=== PATIENT | male | born 1995 | race Caucasian/White ===

== ENCOUNTER 2023-05-03 19:43 | Emergency (ER) | payer BC, SELFPAY ==
[2023-05-03] VITALS (11 sets, daily range): BP systolic 133–151; BP diastolic 83–103; PULSE 71–88; RESP 14–24; TEMP 36.9; O2SAT 95–97
--- NOTE | ~2023-05-03 | XR_ITS ---
XR chest 2V DATE: 05/03/2023 20:12 INDICATION: Bilateral chest pain, lightheadedness TECHNIQUE: PA and lateral views COMPARISON: None FINDINGS: Heart size is normal. No hilar or mediastinal enlargement. No pulmonary infiltrate or conso lidation, pleural effusion or pulmonary vascular congestion or pneumothorax is detected. IMPRESSION: No active cardiopulmonary disease Reviewed, dictated and finalized at location A.
--- NOTE | 2023-05-03 19:45 | ECG_ITS ---
Measurements Intervals [place] Rate: 75 P: 56 NE: 159 QRS: 33 QRSD: 89 T: 28 QT: 354 QTc: 396 Interpretive Statements SINUS RHYTHM ATRIAL PREMATURE COMPLEX DELAYED PRECORDIAL R/S TRANSITION BASELINE ARTIFACT- I, II, III, AVL BORDERLINE ECG NO PREVIOUS ECG AVAILABLE FOR COMPARISON Electronically Signed On 05-03-2023 21:16:41 CDT by Sushil Jacinto D.O.
--- NOTE | 2023-05-03 20:07 | ED.DIZZY ---
HPI - Dizziness General Chief Complaint: Dizziness Stated Complaint: lightheaded Time Seen by Provider: 05/03/23 19:44 History of Present Illness HPI Narrative: This is a 27-year-old male, who denies significant past medical history, presenting to the emergency department complaining of lightheadedness. The patient states he was sitting into his vehicle, when he became lightheaded. This was associated with intermittent 2/10 throbbing pain in the chest that has occurred in multiple different locations. He states the pain last approximately 30 to 45 seconds and resolves on its own. He denies cough, shortness of breath, loss of consciousness, weakness/numbness. Related Data Home Medications Medication Instructions Recorded Confirmed No Home Medications 05/03/23 05/03/23 Allergies Allergy/AdvReac Type Severity Reaction Status Date / Time No Known Allergies Allergy Verified 05/03/23 19:50 Review of Systems Review of Systems: CONSTITUTIONAL: Denies fever, chills, or sweats. CARDIOVASCULAR: Intermittent chest throbbing denies palpitations, or edema. RESPIRATORY: Denies cough or dyspnea. GASTROINTESTINAL: Denies abdominal pain, nausea, vomiting, or diarrhea. GENITOURINARY: Denies dysuria or hematuria. SKIN: Denies rash or itching. MUSCULOSKELETAL: Denies back pain, joint pain, or myalgia. NEUROLOGIC: Lightheadedness denies headache, numbness, or weakness. PSYCHIATRIC: Denies anxiety or depression. PMFSH Past Medical History Medical History No significant past medical history Surgical History Surgical History (Updated 05/03/23 @ 20:08 by Arjun Denton MD) No significant past surgical history Social History Social History (Updated 05/03/23 @ 20:09 by Arjun Denton MD) Smoking status: Never smoker Alcohol intake: current Substance use: never Lack of Transportation: No Lack of Food: Never True Current Housing: I Have Housing Difficulty Paying Gas/Electric Bills: No Occupation/Education: occupation Exam Narrative: GENERAL: Well-developed, well-nourished, and in no acute distress. HEAD: Normocephalic, atraumatic. EYES: PERRLA and EOMI. ENT: Nares clear, no rhinorrhea or epistaxis. Mucous membranes moist. Oropharynx without tonsillar hypertrophy exudate or other lesions. NECK: Supple. No JVD CHEST: Clear to auscultation. No respiratory distress. No wheezes rales or rhonchi HEART: Regular rate and rhythm. No murmur heard. Normal peripheral pulses. ABDOMEN: Soft, nontender, nondistended, normal active bowel sounds. EXTREMITIES: Normal range of motion. No edema. SKIN: Warm, dry, no rash. NEURO: No focal deficits. Alert and oriented x3. PSYCH: Normal mood and affect. Course Course Emergency Course: 20:52 - EKG not concerning for arrhythmia and demonstrates 1 PVC. Chemistries within normal limits. CBC unremarkable. Troponin negative. Heart score 1. I do not suspect ACS. Chest x-ray unremarkable. The patient states he feels improved after IV fluids. Will discharge with recommendation for primary care follow-up. Discussed return and emergency precautions including signs/symptoms of ACS and respiratory distress. The patient voiced understanding and is comfortable with the plan. All questions answered to his satisfaction. Vital Signs Vital signs: Vital Signs Temperature 98.5 F 05/03/23 19:42 Pulse Rate 88 05/03/23 19:42 Respiratory Rate 17 05/03/23 19:42 Blood Pressure 148/83 H 05/03/23 19:42 Pulse Oximetry 96 05/03/23 19:42 Oxygen Delivery Room Air 05/03/23 19:42 Temperature 98.5 F 05/03/23 20:40 Pulse Rate 76 05/03/23 21:15 Respiratory Rate 14 05/03/23 21:15 Blood Pressure 133/92 H 05/03/23 21:15 Pulse Oximetry 96 05/03/23 21:15 Oxygen Delivery Room Air 05/03/23 19:42 MDM - Dizziness MDM Narrative Medical decision making narrative: Plan: Labs, EKG,
[2023-05-03] MEDS: ACETAMINOPHEN 500 MG TABLET 1000 MG PO (20:12)
[2023-05-03 20:13] LABS: Basophils Percent Auto 0.8 % (0.2-1.2); Eosinophils Absolute Auto 0.1 K/mm3 (0-0.3); Eosinophils Percent Auto 1.6 % (0-4.4); Hematocrit 46.4 % (42.0-52.0); Hemoglobin 15.8 g/dL (14.0-18.0); Immature Granulocyte Absolute 0.01 K/mm3 (0.00-0.031); Immature Granulocyte Percent A 0.2 % (0-0.5); Lymphocytes Absolute Auto 2.26 K/mm3 (0.9-3.2); Lymphocytes Percent Auto 44.2 % (18.3-44.2); Mean Corpuscular HGB Conc 34.1 g/dl (32-36); Mean Corpuscular Hemoglobin 28.3 pg (26-34); Mean Corpuscular Volume 83.2 fl (80-100); Mean Platelet Volume 11.1 fl (7.4-10.4); Monocytes Absolute Auto 0.5 K/mm3 (0.1-0.6); Monocytes Percent Auto 9.6 % (2.6-8.5); Neutrophils Absolute Auto 2.2 K/mm3 (1.3-6.7); Neutrophils Percent Auto 43.6 % (45.5-73.1); Platelet Count Result 170 k/mm3 (150-375); Red Blood Count 5.58 M/mm3 (4.6-6.20); White Blood Count 5.1 K/mm3 (4.5-10.0)
[2023-05-03] MEDS: SODIUM CHLORIDE 0.9% IV 1,000 ML 999 ML IV CONT (20:13)
[2023-05-03 20:40] LABS: Alanine Aminotransferase 51 U/L (6-50); Albumin Level 4.8 g/dL (3.5-5.1); Alkaline Phosphatase 66 U/L (38-126); Anion Gap 11 mmol/L (8-16); Aspartate Amino Transferase 32 U/L (17-59); Bilirubin,Total 0.8 mg/dL (0.2-1.3); Blood Urea Nitrogen 9 mg/dL (9-20); Calcium 9.4 mg/dL (8.4-10.2); Carbon Dioxide 23 mmol/L (22-30); Chloride 105 mmol/L (98-107); Estimated CRCL calculation 103 ml/min; Estimated Glomerular Filt Rate > 60; Glucose 97 mg/dL (65-110); Potassium 4.1 mmol/L (3.4-5.0); Sodium 139 mmol/L (137-145)
[2023-05-03 20:50] LABS: Troponin I < 0.012 ng/mL (0.000-0.034)
== END 2023-05-03 21:35 | disposition home or self-care (01) ==
PROVIDERS: Emergency Provider Preventive Medicine Aerospace Medicine
DX: R42 Dizziness and giddiness (principal); R07.89 Other chest pain; R03.0 Elevated blood-pressure reading, without diagnosis of hypertension; I49.1 Atrial premature depolarization
CPT/HCPCS: 36415; 71046; 80053; 84484; 85025; 93005; 96360; 99284; A9270; J7030

== ENCOUNTER 2024-10-03 01:04 | Emergency (ER) | payer OTHER, BC, SELFPAY ==
[2024-10-03 01:28] VITALS: BP 162/90; PULSE 101; RESP 20; TEMP 37.1; O2SAT 98
[2024-10-03 02:46] LABS: HIV 1/2 Ab P24 Ag Result Negative (Negative)
[2024-10-03 02:54] LABS: Hepatitis B Surface Anti Res Negative; Hepatitis C Virus Antibody Negative (Negative)
--- NOTE | 2024-10-03 02:59 | ED_ITS ---
HPI - General Adult General Chief complaint: Unspecified Stated complaint: need test for blood borne pathogens Time Seen by Provider: 10/03/24 02:57 History of Present Illness HPI narrative: Patient is a 29-year-old male who presents the emergency department this evening for blood test for blood borne pathogens secondary to an incident that occurred at work. 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 Patient did have a cut on his right pinky finger that he sustained 3 or 4 days ago and due to this there was concern that the blood that he was exposed to may have gotten into the cot and been of sort. The cut does appear to be old or any healing with granulation tissue, no open wounds noted. Per protocol patient's was sent to our facility for testing for HIV and hepatitis-B and C. Patient is currently denying any symptoms. Related Data Home Medications ?Medication ?Instructions ?Recorded ?Confirmed ?Last Taken ?Type No Home Medications 05/03/23 05/03/23 Unknown History Allergies Allergy/AdvReac Type Severity Reaction Status Date / Time No Known Allergies Allergy Verified 10/03/24 01:30 Review of Systems Review of Systems: All systems are reviewed and are negative unless stated otherwise in the HPI. [facility] Past Medical History Medical History No significant past medical history Surgical History Surgical History No significant past surgical history Social History Social History Smoking status: Never smoker Alcohol intake: current Substance use: never Lack of Transportation: No Lack of Food: Never True Current Housing: I Have Housing Difficulty Paying Gas/Electric Bills: No Occupation/Education: occupation Exam Narrative: General: Alert, awake, afebrile, in no acute distress. HEENT: PERRL, no rhinorrhea, no post nasal drip, oropharynx clear. Neck: Trachea midline, no JVD, no lymphadenopathy. Cardiovascular: Regular rate and rhythm, no murmurs, rubs or gallops, no periphe ral edema. Respiratory: Clear to auscultation bilaterally, no tachypnea, no wheezing, no rhonchi, no rubs, no respiratory distress. Abdomen: Soft, nontender, nondistended, no rebound, no guarding, no peritoneal signs. Musculoskeletal: No joint swelling or deformity, normal muscle tone. Skin: No rashes or petechia, no signs of infection. Psychiatric: Alert and oriented, normal behavior and judgment for situation. Neurological: Alert and oriented to person, place, and time. Follows all commands. No focal deficits, speech is clear and fluent. Course Vital Signs Vital signs: Vital Signs Temperature 98.7 F 10/03/24 01:28 Pulse Rate 101 H 10/03/24 01:28 Respiratory Rate 20 10/03/24 01:28 Blood Pressure 162/90 H 10/03/24 01:28 Pulse Oximetry 98 10/03/24 01:28 Oxygen Delivery Room Air 10/03/24 01:28 Temperature 98.7 F 10/03/24 01:28 Pulse Rate 101 H 10/03/24 01:28 Respiratory Rate 20 10/03/24 01:28 Blood Pressure 162/90 H 10/03/24 01:28 Pulse Oximetry 98 10/03/24 01:28 Oxygen Delivery Room Air 10/03/24 01:28 Medical Decision Making MDM Narrative Medical decision making narrative: The patient was evaluated by myself in the emergency department. History is obtained from patient who is an independent historian and physical exam was performed. External medical records were reviewed at this time. HIV hepatitis-B and C blood test were all negative. Comorbidities impacting this visit include none. I have evaluated and discussed social determinants of health with the patient that could potentially impact subsequent diagnosis and treatment plans. On repeat assessment of the patient, reevaluation revealed that the patient is doing well and is in no acute distress. Patient symptoms have remained stable since he arrived to our emergency department. Repeat vital signs were all reviewed and noted to be stable. Differential diagnosis and treatment plan were discussed with the patient at bedside. Patient agrees with discussion and after shared medical decision making agrees with discharge. All questions were answered to the patient's satisfaction. Patient will follow up with PCP in 3-5 days. Patient was provided with strict return precautions and instructed to return to the emergency department if any new or worsening symptoms develop. The patient was discharged in stable condition. Vital Signs Vital Signs: Vital Signs Temperature 98.7 F 10/03/24 01:28 Pulse Rate 101 H 10/03/24 01:28 Respiratory Rate 20 10/03/24 01:28 Blood Pressure 162/90 H 10/03/24 01:28 Pulse Oximetry 98 10/03/24 01:28 Oxygen Delivery Room Air 10/03/24 01:28 Temperature 98.7 F 10/03/24 01:28 Pulse Rate 101 H 10/03/24 01:28 Respiratory Rate 20 10/03/24 01:28 Blood Pressure 162/90 H 10/03/24 01:28 Pulse Oximetry 98 10/03/24 01:28 Oxygen Delivery Room Air 10/03/24 01:28 Lab Data Labs: Lab Results 10/03/24 Range/Units 01:30 Hep Bs Antibody Negative Hepatitis C Ab Screen Negative (Negative) HIV 1&2 Ab/P24 Ag 4thGn Negative (Negative) Discharge Plan Discharge Clinical Impression: Exposure to blood-borne pathogen Patient Disposition: Home, Self-Care Condition: Stable Instructions: Antibiotic Form Additional Instructions: Please follow-up with your family doctor within the next 3-5 days. Return to the ED if any new or worsening symptoms develop. Patient Language: Kyrgyz Prescriptions: No Action No Home Medications Follow-up/Referrals: PHYSICIAN,DIGITAL CONTENT MANAGER [Primary Care Provider] - Dalton Macias MD [Physician] - 1 Week Time of Disposition: 03:05
[2024-10-03 03:22] VITALS: RESP 18; O2SAT 98
--- OUTSIDE RECORDS SUMMARY | 2024-10-10 04:27 | XMS_ITS | Patient Health Summary ---
Author Organization [facility] Address [address] [place] [address] Care Team Providers Care Grey Iron Molder Name Role Phone Unavailable Primary Care Provider Unavailabl e Note from [facility],non-owned Affiliates and Associated Physician Practices is amultiple site organization consisting of ambulatory clinics and hospital sitesin [place], [place], [place] and [place]. This disclosure is being madepursuant to the Care Everywhere program and may not contain all information available regarding this patient. Last updated 18.[facility] Social History Tobacco Use Types Packs/Day Years Used Date Smoking Tobacco: Never Assessed Sex and Gender Information Value Date Recorded Sex Assigned at Not on file Gender Identity Not on file Sexual Orientation Not on file
--- OUTSIDE RECORDS SUMMARY | 2024-10-10 04:27 | XMS_ITS | Data Portability ---
Author Organization [place] [facility] [email or web address], Main Office Address [address] [place] [address] Assessment No assessment recorded. Plan of Treatment Reminders Order Date Submit Date Provider Last Modified By Organization Details Last Modified Time Details Appointments None recorded. Lab None recorded. Referral None recorded. Procedures None recorded. Surgeries None recorded. Imaging None recorded. Medication Orders propranolol 10 mg tablet 2022 023 [facility] #[id number], [address], [place], [id number], 3 08:56:55 sertraline 25 mg tablet 2022 023 [facility] #[id number], [address], [place], [id number], 3 08:56:54 propranolol 10 mg tablet 2022 023 [facility][id number], [address], [place], [id number], 3 08:49:50 sertraline 25 mg tablet 2022 023 [facility] #[id number], [address], [place], [id number], 3 08:49:50 propranolol 10 mg tablet 2023 024 [facility][id number], [address], [place], [id number], 4 12:21:30 sertraline 25 mg tablet 2023 024 [facility] #[id number], [address], [place], [place], [id number], 4 12:21:31 Patient TargetsNo targets recorded. Patient InstructionsNo instructions recorded. Reason for Referral None Reported. Problems Name Problem SNOMED Code Status Onset Date Resolution Date Notes Provider Name and Address Organization Details Recorded Time Hypertensive disorder 58817571 Active 2022 Vani Nicholson CMA null, [place] [employer] 3 08:23:19 Panic attack 778957017 Active 2022 EFRA[facility]N Willoughby [address], [place], [address], [employer] 3 08:36:09 Anxiety 57333469 Active 2022 EFRAÍN Willoughby [address], [place], [address], [facility] 3 08:37:37 Problem Notes None recorded. Medical Equipment None Reported. Allergies No known drug allergies Medications Name Sig Start Date Stop Date Status Note LastModified by Organization Details LastModified Time prednisone 20 mg tablet TAKE 2 TABLETS BY MOUTH EVERY DAY FOR 5 DAYS active Not Available Not Available No t Available propranolol 10 mg tablet TAKE 2 TABLETS BY MOUTH THREE TIMES DAILY NEEDED active Not Available Not Available No t Available amoxicillin 875 mg tablet TAKE 1 TABLET BY MOUTH TWICE DAILY FOR 10 DAYS active Not Available Not Available No t Available benzonatate 100 mg capsule TAKE 1 CAPSULE BY MOUTH THREE TIMES DAILY FOR 10 DAYS active Not Available Not Available No t Available sertraline 25 mg tablet TAKE 1 TABLET BY MOUTH EVERY DAY 024 active Not Available Not Available Not Avai lable fluticasone propionate 50 mcg/actuation nasal spray,suspens ion INSTILL 2 SPRAYS NASALLY ONCE PER DAY active Not Available Not Available No t Available Vitals Date Recorded Body weight Body temperature Oxygen saturation Oxygen saturation in Arterial blood by Pulse oximetry Heart rate Systolic blood pressure Diastolic blood pressure Provider Name and Address Organization Details Last Updated DateTime 3 28783.9 2 g 97.5 [degF] 99 % 99 % 70 /min 138 mm[Hg] 72 mm[Hg] Vani Nicholson CMA [facility] 3 08:22:29 Date Recorded Body weight Body mass index (BMI) Body height Body temperature Heart rate Oxygen saturation Oxygen saturation in Arterial blood by Pulse oximetry Systolic blood pressure Diastolic blood pressure Provider Name and Address Organization Details Last Updated DateTime 3 40952.2 9 g 30.1 kg/m2 172.72 cm 97.9 [degF] 64 /min 99 % 99 % 116 mm[Hg] 78 mm[Hg] Dayanara Jacques RN [email or web address] 3 08:31:32 Date Recorded Body height Body mass index (BMI) Body weight Body temperature Heart rate Oxygen saturation Oxygen saturation in Arterial blood by Pulse oximetry Systolic blood pressure Diastolic blood pressure Provider Name and Address Organization Details Last Updated DateTime 4 172.72 cm 30.4 kg/m2 20851.4 7 g 97.6 [degF] 105 /min 98 % 98 % 134 mm[Hg] 88 mm[Hg] Cristela Oneill RN [facility] 4 11:13:59 Social History Question Answer Notes LastModified by Organizat ion Details LastModified Time Tobacco Smoking Status Never Smoker Vani Nicholson CMA null, [facility] 06/03/2023 08:23:39 What Is Your Level Of Alcohol Consumption? None Information not available 06/03/2023 What Is Your Level Of Caffeine Consumption? Moderate [email or web address] Information not available 06/03/2023 Do You Use Any Illicit Or Recreational Drugs? No [email or web address] Information not available 06/03/2023 Has Tobacco Cessation Counseling Been Provided? No Information not available 06/03/2023 Do You Or Have You Ever Used Any Other Forms Of Tobacco Or Nicotine? No [email or web address] Information not available 06/03/2023 Sex: Unknown Functional Status None recorded. Mental Status None recorded. Family History Nothing Reported. Medical History No medical history recorded. Past Encounters Encounter ID Performer Location Encounter Start Date Encounter Closed Date Diagnosis/Indication Diagnosis SNOMED-CT Code Diagnosis ICD10 Code [id number] Nathan Watt DIRECTOR DATA MANAGEMENT-C [facility] [address] [address] [place] [address] 06/03/2023 08:14:15 06/03/2023 08:45:02 Panic attack 607617680 F41.0 Anxiety 09757687 F41.9 [id number] Nathan Watt DIRECTOR DATA MANAGEMENT-C [facility] [address] [facility] [address] [place] [address] 07/08/2023 08:26:19 07/08/2023 08:41:48 Panic attack 822139063 F41.0 Anxiety 21790220 F41.9 [id number] GRISEL WilloughbyP-C [facility] [address] [facility] [address] [place] [address] 11/13/2023 11:07:18 11/13/2023 12:24:11 Panic attack 391241023 F41.0 Anxiety 77449152 F41.9 Health Concerns Section Related Observation LastModified by Organization Detai ls LastModified Time None Recorded Concern Status LastModified by Organization Details LastModified Time None Recorded Advance Directives Directive None Recorded Payers Encounter Date Sequence Insurance Name Policy Number Policy Winters Covered Member ID Winters Member ID Guarantor Name 06/03/2023 1 [place] [id number] Rakeshlarry Sanchez [id number] Rakeshlarry Sanchez 07/08/2023 1 [place] [id number] Rakesh Sanchez [id number] Rakesh Sanchez 11/13/2023 1 [place] [id number] Rakesh Sanchez [id number] Rakeshlarry Sanchez Notes Date Note Type Note Provider Name and Address Organization Details Recorded Time 06/03/2023 text/html Pt is here to establish care with a pcp. Was taken to the hospital per EMS recently for cardiac symptoms. Reports blood pressure over 200 systolic with EMS. Discharged from ER without scripts Believes he suffers from anxiety/panic attacks. Worsened in the last 2 years. Sx include chest pressure, racing thoughts. Can last as long as an hour EFRA[facility]N Willoughby [address], [place], [address], [facility] [employer] [facility] 06/03/2023 08:57:24 07/08/2023 text/html Pt is here to f/ u on anxiety/panic attacks EFRAÍN Willoughby [address], [place], [address], [facility] [employer] [facility] [employer] [facility] 07/08/2023 08:50:11 11/13/2023 text/html Pt is here for 3 month f/u EFRAÍN Willoughby [address], [place], [address], [facility] [employer] [facility] [employer] [facility] 11/13/2023 12:22:24
--- OUTSIDE RECORDS SUMMARY | 2024-10-10 04:27 | XMS_ITS | Continuity of Care Document ---
Author Organization [facility] Address [address] [place] [address] Phone Care Team Providers Care Inclinometer Tester Name Role Phone Robert Hamm MD Unavailable Unavailabl e Allergies, Adverse Reactions, Alerts Substance Reaction Status Criticality No Known allergies Medications Medication Instructions Dosage Effective Dates (start - stop) Status Comments [place] 5 mg-325 mg tablet take 2 tablet by oral route every 4 - 6 hours as needed for pain - Active Percocet 5 mg-325 mg tablet take 1 - 2 tablet by oral route every 4 - 6 hours as needed 1.00-2.00 tablet - Active Procedures Procedure Date OFFICE/OUTPATIENT VISIT EST POSTOP FOLLOW-UP VISIT POSTOP FOLLOW-UP VISIT POSTOP FOLLOW-UP VISIT MU Reporting OFFICE/OUTPATIENT VISIT NEW Advance Directives Directive Yes / No Effective Date File Name Resuscitation Not Answered N/A N/A Life Support Not Answered N/A N/A Intubation Not Answered N/A N/A Antibiotics Not Answered N/A N/A IV Fluid Support Not Answered N/A N/A Tube Feed Not Answered N/A N/A Other Directive N/A N/A WARNING:The information contained in this section is historical and is provided for information only and does not constitute a legal document or any assurance that the information is still accurate. Please verify the information with the brody of the legal document before using it for clinical purposes. Encounters Encounter Description Practice Location Reason(s) For Visit Diagnoses Date Provider Providers Copied on Encounter OFFICE/OUTPA TIENT VISIT EST [facility], [address] [address], [place], [address], [place] tel:[phone] [facility] Status post arthroscopy of shoulderGlenoid labrum tearPain in joint involving shoulder region [address] , [place], [place], [id number] . tel:[phone] Referring Provider: Junior Davalos, [address] [facility], [place], [address]. tel:[phone] [facility], [address] [address], [place], [address], [place] tel:[phone] [facility] RT SHOULDER (chief complaint) Glenoid labrum tearStatus post arthroscopy of shoulder [address] [facility], [place], [place], [address] . tel:[phone] Referring Provider: Junior Davalos, [address] [place] [address], [place], [address]. tel:[phone] [facility], [address] [facility] [address] [address], [place], [address], [place] tel:[phone] [facility] RT SHOULDER (chief complaint) Status post arthroscopy of shoulderStatus post arthroscopy of shoulderGlenoid labrum tear 3[address] [facility] [address] , [place], [place], [address] . tel:[phone] Referring Provider: Junior Davalos, [address] [facility], [place], [address]. tel:[phone] [facility], [address] [address], [place], [address], [place] tel:[phone] [facility] No Information 0[address] [place], [place], [address] . tel:[phone] [facility], [address] [facility] [address], [place], [address], [place] tel:[phone] [facility] RT SHOULDER (chief complaint) Status post arthroscopy of shoulderGlenoid labrum tear [address], [place], [address]. tel:[phone] Referring Provider: Junior Davalos, [address] [place] [address], [place], [address]. tel:[phone] [facility], [address] [facility] [address], [place], [address], [place] tel:[phone] [facility] No Information [address] [facility] [address] , [place], [place], [address] . tel:[phone] OFFICE/OUTPA TIENT VISIT NEW [facility], [address] [facility] [address], [place], [address], [place] tel:[phone] [facility] Rt shoulder pain (chief complaint) Pain in joint involving shoulder regionGlenoid labrum tear [address] [address] [facility], [place], [place], [address] . tel:[phone] Referring Provider: Junior Davalos, [address] [place] [address], [place], [address]. tel:[phone] Family History Family Member Type Diagnosis Age At Onset Father Problem (finding) DVT Payers Payer name Insurance type Covered constitution party ID Authoriza tion(s) No Information Social History Type Description Quantity Date Captured Comments Alcohol Use Details Unknown Caffeine Use Details Unknown Tobacco Use Status No Information Smoking Status Never smoker Sex Male Chief Complaint And Reason For Visit No Information Reason For Referral Reason For Referral No Information History Of Present Illness Encounter Date Complaint History Of Prese nt Illness No Information Functional Status Date Functional Assessmen t No Information Instructions Date Instruction Additional Infor mation Physical activity counseling Rel ated to Dietary Surveillance Counseling Activity as tolerated Activity as tolerated Physical activity counseling Rel ated to Dietary Surveillance Counseling Physical activity counseling Rel ated to Dietary Surveillance Counseling Activity as tolerated Physical activity counseling Rel ated to Dietary Surveillance Counseling Activity as tolerated Physical activity counseling Rel ated to Dietary Surveillance counseling Assessments Type Assessment Date No Information Patient Care Teams Name Effective Dates (start - stop) Status Members No Information
--- OUTSIDE RECORDS SUMMARY | 2024-10-10 04:27 | XMS_ITS | Encounter Summary ---
Author Organization [facility] Address [address] [place] [address]. [place], [place] [address] [place] [address] Care Team Providers Care Peanut Farmer Name Role Phone None, Provider MD Primary Care Provider Unavaila ble Reason for Referral * Imaging (Emergency) - Closed Specialty Diagnoses / Procedures Referred By Cristina anand Referred To Contact RADIOLOGY Procedures CT HEAD WO CON Petra Garcia PA-C [address] [address] Phone: tel: fax: Referral ID Status Reason Start Date Expiration Date Visits Re quested Visits Authorized [id number] Closed 06/10/2021 07/11/2022 1 1 Reason for Visit * Reason Comments Head Injury Encounter Details Date Type Department Care Team (Late st Contact Info) Description 06/10/2021 1:46 PM CDT - 06/10/2021 2:10 PM CDT Emergency [facility] [place] [address] Asif Ruelas PA [address] [place], [place] [address] Head Injury Discharge Disposition: Home or Self Care (Routine Discharge) Social History Tobacco Use Types Packs/Day Years Used Date Smoking Tobacco: Never Alcohol Use Standard Drinks/Week Comments Yes 0 (1 standard drink = 0.6 oz pur e alcohol) socially Sex and Gender Information Value Date Recorded Sex Assigned at Not on file Legal Sex Male 8:05 PM CDT Gender Identity Not on file Sexual Orientation Not on file documented as of this encounter Last Filed Vital Signs Vital Sign Reading Time Taken Comments Blood Pressure 160/100 06/10/2021 10:28 AM CDT Pulse 89 06/10/2021 10:28 AM CDT Temperature 36.7 ??C (98.1 ??F) 06/10/2021 1 0:28 AM CDT Respiratory Rate 16 06/10/2021 10:2 8 AM CDT Oxygen Saturation 99% 06/10/2021 10: 28 AM CDT Inhaled Oxygen Concentration - - Weight 71.6 kg (157 lb 13.6 oz) 021 10:28 AM CDT Height 172.7 cm (5' 8 ) 06/10/2021 10:2 8 AM CDT Body Mass Index 24 06/10/2021 10:28 AM CDT documented in this encounter Discharge Instructions * Attachments The following attachments cannot be sent through Care Everywhere. * Dizziness, Nonvertigo, Discharge Instructions (Greek) * Concussion, Adult ED (Greek) documented in this encounter ED Notes * Jazmin Bridges RN - 06/10/2021 2:14 PM CDT Provider discussed today's findings with the patient/family. The patient has been given informationregarding their treatment, follow up and concerning symptoms for which they should seek urgent or emergent attention. I have expressed the the importance of seeking attention should there be any new,or worsening symptoms or persistence of their condition. Patient verbalized understanding of the discharge instructions. * SHERRI Sandoval - 06/10/2021 1:54 PM CDT [place], [place] EMERGENCY DEPARTMENT ENCOUNTER HISTORICAL INFORMATION Primary Care Doctor: Provider MD Elilott Patient information was obtained primarily from the patient, nursing notes History/Exam limitations: None Provider at Bedside Date/Time Event User Comments 06/10/21 9298 Provider at Bedside Assessing Patient PETRA GARCIA CHIEF COMPLAINT Head Injury HPI Rakesh Sanchez is a 25-year-old male who presents dizziness after striking head on Thursday (whileintoxicated - same level fall). Pt states he has been feeling dizzy since. No real headache. Pt denies neck pain. Pt denies visual disturbances, no n/v. PAST MEDICAL HISTORY History reviewed. No pertinent past medical history. Negative unless otherwise noted SURGICAL HISTORY Past Surgical History: Procedure Laterality Date ??? SHOULDER SURGERY Negative unless otherwise noted CURRENT MEDICATIONS No current facility-administered medications for this encounter. No current outpatient medications on file. ALLERGIES No Known Allergies FAMILY HISTORY No family history on file. Negative unless otherwise noted SOCIAL HISTORY Social History Socioeconomic History ??? Marital status: Single Spouse name: Not on file ??? Number of children: Not on file ??? Years of education: Not on file ??? Highest education level: Not on file Occupational History ??? Not on file Tobacco Use ??? Smoking status: Never Smoker Substance and Sexual Activity ??? Alcohol use: Yes Comment: socially ??? Drug use: Never ??? Sexual activity: Not on file Other Topics Concern ??? Not on file Social History Narrative ??? Not on file Social Determinants of Health Financial Resource Strain: ??? Difficulty of Paying Living Expenses: Food Insecurity: ??? Worried About Running Out of Food in the Last Year: ??? Ran Out of Food in the Last Year: Transportation Needs: ??? Lack of Transportation (Medical): ??? Lack of Transportation (Non-Medical): Physical Activity: ??? Days of Exercise per Week: ??? Minutes of Exercise per Session: Stress: ??? Feeling of Stress : Social Connections: ??? Frequency of Communication with Friends and Family: ??? Frequency of Social Gatherings with Friends and Family: ??? Attends Orthodox Services: ??? Active Member of Clubs or Organizations: ??? Attends Club or Organization Meetings: ??? Marital Status: Intimate Partner Violence: ??? Fear of Current or Ex-Partner: ??? Emotionally Abused: ??? Physically Abused: ??? Sexually Abused: Negative unless otherwise noted REVIEW OF SYSTEMS Review of Systems Neurological: Positive for dizziness. All other systems reviewed and negative PHYSICAL EXAM VITAL SIGNS: Filed Vitals: 06/10/21 1028 BP: (!) 160/100 Pulse: 89 Resp: 16 Temp: 98.1 ??F (36.7 ??C) SpO2: 99% Weight: 71.6 kg (157 lb 13.6 oz) Height: 5' 8 (1.727 m) Constitutional: Well developed, Well nourished, No acute distress, Non-toxic appearance. HENT: Normocephalic, Atraumatic, Bilateral external ears normal, Oropharynx moist, Eyes: PERRL, EOMI, Conjunctiva normal, No discharge. Neck- Normal range of motion, No tenderness, Supple, No stridor. Respiratory: Normal breath sounds, No respiratory distress. Cardiovascular: Normal heart rate, Normal rhythm, no chest wall tenderness GI: nd Musculoskeletal: Intact distal pulses, No edema, No tenderness, No cyanosis, No clubbing. Good range of motion in all major joints. No tenderness to palpation or major deformities noted. Back- No tenderness. Integument: Warm, Dry, No erythema, No rash. Lymphatic: No lymphadenopathy noted. Neurologic: Alert & oriented x 3, Psychiatric: Affect normal, Judgment normal, Mood normal. Pertinent Labs: No results found for this visit on 06/10/21. RADIOLOGY CT HEAD WO CON Final Result by User, [id number] (06/10 1216) Procedure(s): CT HEAD WO CON Date of service: 06/10/2021 12:04 PM Provided clinical information: 25 years, Male, Head trauma, mod-severe Procedure and materials: Helical images of the head are obtained from the base of skull through to the vertex. A dose lowering technique was used for this procedure, which may include, but is not limited to, dose reduction technique, automated exposure control, iterative reconstruction, ALARA (As Low As Reasonably Achievable), or Image Gently techniques. Comparison studies: None. Observations: No intracranial hemorrhage, midline shift or mass effect is present. Ventricles and sulci are concordant with patient's age. Calvarium is intact. Paranasal sinuses are clear. IMPRESSION: No acute intracranial abnormality. Referred By: Interpreted By: Abiel Herrera MD, 06/10/2021 12:11 PM P MEDS GIVEN IN ER: Medications - No data to display ED COURSE & MEDICAL DECISION MAKING Pertinent Labs & Imaging studies reviewed. (See chart for details) Discussed concussion and rest and return precautions. ? Disposition Discussion: I have discussed today's findings with the patient and provided information regarding the likely diagnosis. The patient has been given information regarding their treatment, follow up and concerning symptoms for which they should seek urgent or emergent attention. I have expressed the the importance of seeking attention should there be any new, or worsening symptoms or persistence of their condition. The patient is stable at discharge and has verbalized understanding of these instructions. DATE: 06/10/2021 1:54 PM PATIENT: Rakesh Sanchez Discharge Clinical Impressions: dizziness concussion Discharge Condition: stable Discharge Disposition: Patient discharge to home with I spent time answering the patient's questions. Discharge instructions using teach back, understanding assessed and validated. Please refer to the exit leader writer discharge instructions for details surrounding the discharge plan. I did reiterate with the patient that if an urgent need for immediate follow up comes up, not to hesitate to return to the ED. SHERRI Sandoval PA 06/10/21 1356 Cosigned by Mendez Sandoval MD at 06/10/2021 2:52 PM CDT * Petra Garcia PA-C - 06/10/2021 12:29 PM CDTSummary: head injury [place], [place] EMERGENCY DEPARTMENT ENCOUNTER Medical Screening Examination 06/10/21 12:29 PM Chief Complaint : Head Injury HPI : Rakesh Sanchez is a 25-year-old male who presents c/o ongoing AVERY and dizziness x3 days afterminor head injury. Vital Signs: Filed Vitals: 06/10/21 1028 BP: (!) 160/100 Pulse: 89 Resp: 16 Temp: 98.1 ??F (36.7 ??C) SpO2: 99% Weight: 71.6 kg (157 lb 13.6 oz) Height: 5' 8 (1.727 m) Physical exam: A brief physical exam was completed to facilitate/expedite patient care. Chen findings include: stable Plan: imaging. Evaluation PETRA GARCIA PA-C 06/10/2021 Petra Garcia PA-C 06/10/21 1230 Cosigned by Mendez Snadoval MD at 06/10/2021 1:09 PM CDT * Hair Li RN - 06/10/2021 10:29 AM CDT Ambulatory to ED complaining of hitting his head day night and getting dizzy with standing since. Pt states at work felt like he was going to pass out and was told to come here. No symptoms currently. Denies vision changes, nvd, headache documented in this encounter Plan of Treatment Not on file documented as of this encounter Procedures Procedure Name Priority Date/Time Associated Diagnosis Comments CT HEAD WO CON STAT 06/10/2021 12:04 PM CDT documented in this encounter Results * CT HEAD WO CON (06/10/2021 12:04 PM CDT) Anatomical Region Laterality Modality Head Computed Tomogra phy 06/10/2021 12:1 1 PM CDT Impressions 06/10/2021 12:15 PM CDT IMPRESSION: No acute intracranial abnormality. Referred By: ?? Interpreted By: Abiel Herrera MD, 06/10/2021 12:11 PM Narrative 06/10/2021 12:15 PM CDT Procedure(s): CT HEAD WO CON Date of service: 06/10/2021 12:04 PM Provided clinical information: 25 years, Male, Head trauma, mod-severe Procedure and materials: Helical images of the head are obtained from the base of skull through to the vertex. A dose lowering technique was used for this procedure, which may include, but is not limited to, dose reduction technique, automated exposure control, iterative reconstruction, ALARA (As Low As Reasonably Achievable), or Image Gently techniques. Comparison studies: None. Observations: ?? No intracranial hemorrhage, midline shift or mass effect is present. ??Ventricles and sulci are concordant with patient's age. ??Calvarium is intact. ??Paranasal sinuses are clear. Procedure Note Abiel Herrera MD - 06/10/2021 Procedure(s): CT HEAD WO CON Date of service: 06/10/2021 12:04 PM Provided clinical information: 25 years, Male, Head trauma, mod-severe Procedure and materials: Helical images of the head are obtained from thebase of skull through to the vertex. A dose lowering technique was used for this procedure, which may include,but is not limited to, dose reduction technique, automated exposurecontrol, iterative reconstruction, ALARA (As Low As ReasonablyAchievable), or Image Gently techniques. Comparison studies: None. Observations: No intracranial hemorrhage, midline shift or mass effect is present.Ventricles and sulci are concordant with patient's age. Calvarium isintact. Paranasal sinuses are clear. IMPRESSION: No acute intracranial abnormality. Referred By: Interpreted By: Abiel Herrera MD, 06/10/2021 12:11 PM us Petra Garcia PA-C CT Final Resul t documented in this encounter Visit Diagnoses Diagnosis Concussion- Primary Concussion, unspecified Dizziness Dizziness and giddiness documented in this encounter Care Teams Peanut Farmer Relationship Specialty Start Date End Date None, Provider, PCP - General 06/10/21 documented as of this encounter
--- OUTSIDE RECORDS SUMMARY | 2024-10-10 04:27 | XMS_ITS | Encounter Summary ---
Author Organization [facility] Address [address] [facility] [place] [address] Care Team Providers Care Security System Administrator Name Role Phone Unavailable Primary Care Provider Unavailabl e Encounter Details Date Type Department Care Team (Latest Contact Info) Description 08/27/2016 11:29 AM SUPERVISOR FABRICATION DEPARTMENT - 08/27/2016 11:59 PM SUPERVISOR FABRICATION DEPARTMENT Hospital Encounter [facility] MATERNAL/ EVALUATION UNIT [address] [place] [address]. [address] [place] [address] Edward Kimble MD [address] [place] [id number] Discharge Disposition: Home or Self Care Social History Tobacco Use Types Packs/Day Years Used Date Smoking Tobacco: Never Assessed Sex and Gender Information Value Date Recorded Sex Assigned at Not on file Gender Identity Not on file Sexual Orientation Not on file documented as of this encounter Progress Notes * Marcelo Carroll RN - 08/27/2016 2:40 PM CST Order per Jonny Alcantar for genetic lab draw. Appointment created for blood draw. Jonny robertson. Labs sent. 08-27-16 RVISOR FABRICATION DEPARTMENT documented in this encounter Plan of Treatment Not on file documented as of this encounter Visit Diagnoses Not on filedocumented in this encounter
--- OUTSIDE RECORDS SUMMARY | 2024-10-10 04:27 | XMS_ITS | Encounter Summary ---
Author Organization [facility] Address [address] [place] [address]. [place], [place] [address] [place] [address] Care Team Providers Care Machine Binding Folder Name Role Phone Unavailable Primary Care Provider Unavailabl e Encounter Details Date Type Department Care Team (Late st Contact Info) Description 07/09/2008 Emergency [facility] Emergency [place], [place] [address] Omaira Gill MD [address] [facility] [address] [place] [address] Social History Tobacco Use Types Packs/Day Years Used Date Smoking Tobacco: Never Assessed Sex and Gender Information Value Date Recorded Sex Assigned at Not on file Legal Sex Male 8:05 PM CDT Gender Identity Not on file Sexual Orientation Not on file documented as of this encounter Plan of Treatment Not on file documented as of this encounter Visit Diagnoses Not on filedocumented in this encounter
--- OUTSIDE RECORDS SUMMARY | 2024-10-10 04:27 | XMS_ITS | Referral Summary ---
Author Organization [facility] Address [address] [place] [address] Care Team Providers Care Housekeeper Supervisor Name Role Phone Unavailable Primary Care Provider Unavailabl e Source Comments [facility],non-owned Affiliates and Associated Physician Practices is amultiple site organization consisting of ambulatory clinics and hospital sitesin [place], [place], [place] and [place]. This disclosure is being madepursuant to the Care Everywhere program and may not contain all information available regarding this patient. Last updated 18.[facility] [employer] Social History Tobacco Use Types Packs/Day Years Used Date Smoking Tobacco: Never Assessed Sex and Gender Information Value Date Recorded Sex Assigned at Not on file Gender Identity Not on file Sexual Orientation Not on file Plan of Treatment Not on file
--- OUTSIDE RECORDS SUMMARY | 2024-10-10 04:27 | XMS_ITS | Encounter Summary ---
Author Organization [facility] Address [address] [place] [address]. [place], [place] [id number] [place] [address] Care Team Providers Care Audit Senior Associate Name Role Phone Unavailable Primary Care Provider Unavailabl e Encounter Details Date Type Department Care Team (Latest Contact Info) Description 11/29/2012 Abstract [facility] Medical Group Social History Tobacco Use Types Packs/Day Years [...]
--- OUTSIDE RECORDS SUMMARY | 2024-10-10 04:27 | XMS_ITS | Clinical Summary ---
Author Organization [facility] Address [address] [place] [address]. [place], [place] [id number] [place] [address] Care Team Providers Care Vessel Captain Name Role Phone None, Provider Primary Care Provider Unavaila ble Allergies No known active allergies Social History Tobacco Use Types Packs/Day Years Used Date Smoking Tobacco: Never Alcohol Use Standard Drinks/Week Comments Yes 0 (1 standard drink = 0.6 oz pur e alcohol) socially Sex and Gender Information Value Date Recorded Sex Assigned at Not on file Legal Sex Male 8:05 PM CDT Gender Identity Not on file Sexual Orientation Not on file Last Filed Vital Signs Vital Sign Reading Time Taken Comments Blood Pressure 145/94 06/10/2021 2:12 PM CDT Pulse 76 06/10/2021 2:12 PM CDT Temperature 36.7 ??C (98.1 ??F) 06/10/2021 1 0:28 AM CDT Respiratory Rate 18 06/10/2021 2:12 PM CDT Oxygen Saturation 99% 06/10/2021 2:12 PM CDT Inhaled Oxygen Concentration - - Weight 71.6 kg (157 lb 13.6 oz) 021 10:28 AM CDT Height 172.7 cm (5' 8 ) 06/10/2021 10:2 8 AM CDT Body Mass Index 24 06/10/2021 10:28 AM CDT Plan of Treatment Health Maintenance Due Date Last Done Comments Annual Physical 1996 Hepatitis C 2011 DTaP, Tdap and Td Vaccines (2 - Tdap) 2012 05/07/2000, 03/26/2000, 07/24/1999, Additional history exists Hepatitis B Vaccines (1 of 3 - 19+ 3-dose series) 2012 COVID-19 Vaccine (2023-25 season) 2024 Influenza Adult (#1) 2024 HPV Vaccines Aged Out No longer eligi ble based on patient's age to complete this topic Meningococcal Vaccine Aged Out No pedro luis michael eligible based on patient's age to complete this topic Pneumococcal Vaccine: Pediatrics (0 to 5 Years) and At-Risk Patients (6 to 64 Years) Aged Out No longer eligible based on patient's age to complete this topic RSV Immunizations Under 20 Months Aged Out No longer eligible based on patient's age to complete this topic Insurance Care Teams Vessel Captain Relationship Specialty Start Date End Date None, ProviderMD PCP - General 06/10/21
--- OUTSIDE RECORDS SUMMARY | 2024-10-10 04:27 | XMS_ITS | Encounter Summary ---
Author Organization [facility] Address [address] [place] [address]. [place], [place] [address] [place] [address] Care Team Providers Care Rn Angiography Name Role Phone Unavailable Primary Care Provider Unavailabl e Encounter Details Date Type Department Care Team (Late st Contact Info) Description 09/04/2008 Emergency [facility] Emergency Room ONE [place], [place] [address] Omaira Gill MD [address] [facility] [address] [place] [address] Social History Tobacco Use Types Packs/Day Years [...]
--- OUTSIDE RECORDS SUMMARY | 2024-10-10 04:27 | XMS_ITS | Encounter Summary ---
Author Organization [facility] Address [address] [place] [address]. [place], [place] [address] [place] [address] Care Team Providers Care Commercial Cleaner Name Role Phone Unavailable Primary Care Provider Unavailabl e Encounter Details Date Type Department Care Team (Late st Contact Info) Description 04/12/2002 Abstract [facility] [place] [address] , Mark Lambert MD Social History Tobacco Use Types Packs/Day Years [...]
--- OUTSIDE RECORDS SUMMARY | 2024-10-10 04:27 | XMS_ITS | Clinical Summary ---
Author Organization [facility] Address [address] [place] [address] Care Team Providers Care Vineyard Supervisor Name Role Phone Unavailable Primary Care Provider Unavailabl e Source Comments [facility],non-owned Affiliates and Associated Physician Practices is amultiple site organization consisting of ambulatory clinics and hospital sitesin [place], [place], [place] and [place]. This disclosure is being madepursuant to the Care Everywhere program and may not contain all information available regarding this patient. Last updated 18.[facility] [employer] Social History Tobacco Use Types Packs/Day Years Used Date Smoking Tobacco: Never Assessed Sex and Gender Information Value Date Recorded Sex Assigned at Not on file Gender Identity Not on file Sexual Orientation Not on file Plan of Treatment Health Maintenance Due Date Last Done Comments HIV SCREENING 2008 HEPATITIS C SCREENING 08/04/2011 DTAP/TDAP/TD VACCINES (1 - Tdap) 2012 HEPATITIS B VACCINE (1 of 3 - 19+ 3-dose series) 2012 DEPRESSION SCREENING 10/12/2023 COVID-19 VACCINE (1 - 2023-2 5 season) 2024 INFLUENZA VACCINE (#1) 2024 ZOSTER VACCINE (1 of 2) 2043 HIB VACCINE Aged Out No longer eligi ble based on patient's age to complete this topic HPV VACCINE Aged Out No longer eligi ble based on patient's age to complete this topic MENINGOCOCCAL VACCINE Aged Out No pedro luis michael eligible based on patient's age to complete this topic PNEUMOCOCCAL VACCINE Aged Out No long er eligible based on patient's age to complete this topic
--- OUTSIDE RECORDS SUMMARY | 2024-10-10 06:03 | XMS_ITS | Continuity of Care Document ---
Author Organization [facility] Address [address] [place] [address] Phone Care Team Providers Care Central Supply Aide Name Role Phone Robert Hamm MD Unavailable Unavailabl e Allergies, Adverse Reactions, Alerts Substance Reaction Status Criticality No Known allergies Medications Medication Instructions Dosage Effective Dates (start - stop) Status Comments [place] 5 mg-325 mg tablet take 2 tablet [...] OFFICE/OUTPA TIENT VISIT EST [facility], [address] [address], [place], [address], [place] tel:[phone] [facility] Status post arthroscopy of shoulderGlenoid labrum tearPain in joint involving shoulder region [address] [place]. [address] , [place], [place], [address] . tel:[phone] Referring Provider: Junior Davalos, [address] [facility], [place], [address]. tel:[phone] [facility], [address] [place] [address], [place], [address], [place] tel:[phone] [facility] RT SHOULDER (chief complaint) Glenoid labrum tearStatus post arthroscopy of shoulder Fe [address] [place]. [address] [facility], [place], [place], [address] . tel:[phone] Referring Provider: Junior Davalos, [address] [place] [address], [place], [address]. tel:[phone] [facility], [address] [facility] [address] [place] [address], [place], [address], [place] tel:[phone] [facility] RT SHOULDER (chief complaint) Status post arthroscopy of shoulderStatus post arthroscopy of shoulderGlenoid labrum tear 3-[address] [place]. [address] [facility] [address] , [place], [place], [address] . tel:[phone] Referring Provider: Junior Davalos, [address] [facility], [place], [address]. tel:[phone] [facility], [address] [place] [address], [place], [address], [place] tel:[phone] [facility] No Information 0-[address] [place]. [address] [place], [place], [address] . tel:[phone] [facility], [address] [facility] [address], [place], [address], [place] tel:[phone] [facility] RT SHOULDER (chief complaint) Status post arthroscopy of shoulderGlenoid labrum tear [address]. [address], [place], [address]. tel:[phone] Referring Provider: Junior Davalos, [address] [place] [address], [place], [address]. tel:[phone] [facility], [address] [facility] [address], [place], [address], [place] tel:[phone] [facility] No Information [address] [place]. [address] [facility] [address] , [place], [place], [address] . tel:[phone] OFFICE/OUTPA TIENT VISIT NEW [facility], [address] [facility] [address], [place], [address], [place] tel:[phone] [facility] Rt shoulder pain (chief complaint) Pain in joint involving shoulder regionGlenoid labrum tear [address] [place]. [address] [facility], [place], [place], [address] . tel:[phone] Referring Provider: Junior Davalos, [address] [place] [address], [place], [address]. tel:[phone] Family History Family Member Type Diagnosis Age At Onset Father Problem (finding) DVT Payers Payer name Insurance type Covered green party ID Authoriza tion(s) No Information Social [...]
--- OUTSIDE RECORDS SUMMARY | 2024-10-10 06:03 | XMS_ITS | Encounter Summary ---
Author Organization [facility] Address [address] [place] [place] [address] Care Team Providers Care [address] Shaft And Steering Post Repairer Name Role Phone Unavailable Primary Care Provider Unavailabl e Encounter Details Date Type Department Care Team (Latest Contact Info) Description 08/27/2016 11:29 AM MEDICAL CLERK - 08/27/2016 11:59 PM MEDICAL CLERK Hospital Encounter [facility] MATERNAL/ EVALUATION UNIT [address] [place] [address]. [address] [place] [address] Edward Kimble MD [address] [place] [id number] Discharge Disposition: Home or Self Care Social [...] blood draw. Jonny robertson. Labs sent. 08-27-16 CAL CLERK documented in this encounter Plan of Treatment Not on file documented as of this encounter Visit Diagnoses Not on filedocumented in this encounter
--- OUTSIDE RECORDS SUMMARY | 2024-10-10 06:03 | XMS_ITS | Clinical Summary ---
Author Organization [facility] Address [address] [facility] [address] [place] [address] Care Team Providers Care Gas Plant Dispatcher Name Role Phone Unavailable Primary Care Provider Unavailabl e Source Comments [facility],non-owned Affiliates and Associated Physician Practices is amultiple site organization consisting of ambulatory clinics and hospital sitesin [place], [place], [place] and [place]. This disclosure is being madepursuant to the Care Everywhere program and may not contain all information available regarding this patient. Last updated 18.[facility] [employer] Social History Tobacco Use Types Packs/Day Years [...]
--- OUTSIDE RECORDS SUMMARY | 2024-10-10 06:03 | XMS_ITS | Encounter Summary ---
Author Organization [facility] Address [address] [place] [address]. [place], [place] [address] [place] [address] Care Team Providers Care Clother In Name Role Phone Unavailable Primary Care Provider Unavailabl e Encounter Details Date Type Department Care Team (Latest Contact Info) Description 11/29/2012 Abstract [facility] Social History Tobacco Use [...]
--- OUTSIDE RECORDS SUMMARY | 2024-10-10 06:03 | XMS_ITS | Encounter Summary ---
Author Organization [facility] Address [address] [place] [address]. [place], [place] [address] [place] [address] Care Team Providers Care Ict Educator Name Role Phone Unavailable Primary Care Provider Unavailabl e Encounter Details Date Type Department Care Team (Late st Contact Info) Description 07/09/2008 Emergency [facility] Emergency Room ONE [place], [place] [address] Omaira Gill MD [address] [facility] [address] [place] [address] Social History Tobacco Use Types Packs/Day Years [...]
--- OUTSIDE RECORDS SUMMARY | 2024-10-10 06:03 | XMS_ITS | Patient Health Summary ---
Author Organization [facility] Address [address] [facility] [place] [address] Care Team Providers Care Casting Operator Helper Name Role Phone Unavailable Primary Care Provider Unavailabl e Note from [facility],non-owned Affiliates and Associated Physician Practices is amultiple site organization consisting of ambulatory clinics and hospital sitesin [place], [place], [place] and [place]. This disclosure is being madepursuant to the Care Everywhere program and may not contain all information available regarding this patient. Last updated 18.[facility] Social History Tobacco Use Types Packs/Day Years Used Date Smoking Tobacco: Never Assessed Sex and Gender Information Value Date Recorded Sex Assigned at Not on file Gender Identity Not on file Sexual Orientation Not on file
--- OUTSIDE RECORDS SUMMARY | 2024-10-10 06:03 | XMS_ITS | Clinical Summary ---
Author Organization [facility] Address [address] [place] [address]. [place], [place] [address] [place] [address] Care Team Providers Care Event Coordinator Marketing And Sales Name Role Phone None, Provider Primary Care [...] to complete this topic Insurance Care Teams Event Coordinator Marketing And Sales Relationship Specialty Start Date End Date None, ProviderMD PCP - General 06/10/21
--- OUTSIDE RECORDS SUMMARY | 2024-10-10 06:03 | XMS_ITS | Encounter Summary ---
Author Organization [facility] Address [address] [place] [address]. [place], [place] [address] [place] [address] Care Team Providers Care Assistant Account Manager Name Role Phone Unavailable Primary Care Provider Unavailabl e Encounter Details Date Type Department Care Team (Late st Contact Info) Description 04/12/2002 Abstract [facility] [place] [address] , Mark Lambert MD Social History Tobacco [...]
--- OUTSIDE RECORDS SUMMARY | 2024-10-10 06:03 | XMS_ITS | Encounter Summary ---
Author Organization [facility] Address [address] [place] [address]. [place], [place] [address] [place] [address] Care Team Providers Care Personal Caregiver Name Role Phone None, Provider MD Primary Care Provider Unavaila ble Reason for Referral * Imaging (Emergency) - Closed Specialty Diagnoses / Procedures Referred By Cristina anand Referred To Contact RADIOLOGY Procedures CT HEAD WO CON Petra Garcia PA-C [address] [address] Phone: tel: fax: Referral ID Status Reason Start Date Expiration Date Visits Re quested Visits Authorized [id number] Closed 06/10/2021 07/11/2022 1 1 Reason for Visit * Reason Comments Head Injury Encounter Details Date Type Department Care Team (Late st Contact Info) Description 06/10/2021 1:46 PM CDT - 06/10/2021 2:10 PM CDT Emergency [facility] [place] [address] Asif Ruelas PA [address] [place], [place] [address] Head Injury Discharge Disposition: Home or Self [...] Care Everywhere. * Dizziness, Nonvertigo, Discharge Instructions (Equatorial [place]an) * Concussion, Adult ED ([place]) documented in this encounter ED Notes * [...] SHERRI Sandoval - 06/10/2021 1:54 PM CDT [place], [place] EMERGENCY DEPARTMENT ENCOUNTER HISTORICAL INFORMATION Primary Care Doctor: Provider MD Elliott Patient information was obtained primarily from the patient, nursing notes History/Exam limitations: None Provider at Bedside Date/Time Event User Comments 06/10/21 3949 Provider at Bedside Assessing Patient PETRA GARCIA [...] Gatherings with Friends and Family: ??? Attends Restoration Services: ??? Active Member of Clubs or [...] HEAD WO CON Final Result by User, [email or web address] (06/10 1216) Procedure(s): CT HEAD WO CON [...] and validated. Please refer to the exit contract writer discharge instructions for details surrounding the discharge plan. I did reiterate with the patient that if an urgent need for immediate follow up comes up, not to hesitate to return to the ED. SHERRI Sandoval PA 06/10/21 1356 Cosigned by Mendez Sandoval MD at 06/10/2021 2:52 PM CDT * Petra Garcia PA-C - 06/10/2021 12:29 PM CDTSummary: head injury [place], [place] EMERGENCY DEPARTMENT ENCOUNTER Medical Screening Examination [...] Garcia PA-C 06/10/21 1230 Cosigned by Mendez Sandoval MD at 06/10/2021 1:09 PM CDT * [...] giddiness documented in this encounter Care Teams Personal Caregiver Relationship Specialty Start Date End Date None, Provider, PCP - General 06/10/21 documented as of this encounter
--- OUTSIDE RECORDS SUMMARY | 2024-10-10 06:03 | XMS_ITS | Referral Summary ---
Author Organization [facility] Address [address] [facility] [address] [place] [address] Care Team Providers Care Equipment Detailer Name Role Phone Unavailable Primary Care Provider Unavailabl e Source Comments [facility],non-owned Affiliates and Associated Physician Practices is amultiple site organization consisting of ambulatory clinics and hospital sitesin [place], [place], [place] and [place]. This disclosure is being madepursuant to the Care Everywhere program and may not contain all information available regarding this patient. Last updated 18.[facility] [employer] Social History Tobacco Use Types Packs/Day Years Used Date Smoking Tobacco: Never Assessed Sex and Gender Information Value Date Recorded Sex Assigned at Not on file Gender Identity Not on file Sexual Orientation Not on file Plan of Treatment Not on file
--- OUTSIDE RECORDS SUMMARY | 2024-10-10 06:03 | XMS_ITS | Encounter Summary ---
Author Organization [facility] Address [address] [place] [address]. [place], [place] [address] [place] [address] Care Team Providers Care Physical Therapy Instructor Name Role Phone Unavailable Primary Care Provider Unavailabl e Encounter Details Date Type Department Care Team (Late st Contact Info) Description 09/04/2008 Emergency [facility] Emergency Room [address] [place], [place] [address] mOaira Gill MD [address] [facility] [address] [place] [address] Social History Tobacco Use Types Packs/Day Years [...]
== END 2024-10-03 03:23 | disposition home or self-care (01) ==
PROVIDERS: Physician Assistant; Emergency Provider Emergency Medicine
DX: Z77.21 Contact with and (suspected) exposure to potentially hazardous body fluids (principal)
CPT/HCPCS: 36415; 86703; 86706; 86803; 99283; G0432